=== PATIENT | female | born 1990 | race Caucasian/White ===

== ENCOUNTER 2016-10-02 20:24 | Emergency (ER) | payer OTHER ==
[2016-10-02 21:06] VITALS: BP 134/83; PULSE 87; TEMP 97.9; BMI 32.9
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
[2016-10-03] MEDS ORDERED: METHOCARBAMOL 500 MG TABLET PO ONE (00:05)
[2016-10-03] MEDS ORDERED: KETOROLAC TROMETHAMINE 60 MG/2 ML VIAL IM ONE (00:05)
[2016-10-03] MEDS ORDERED: OXYCODONE/APAP 5/325MG COMBO TABLET PO ONE (00:05)
[2016-10-03] MEDS ORDERED: METHOCARBAMOL 500 MG TABLET ONE (00:14)
[2016-10-03] MEDS ORDERED: OXYCODONE/APAP 5/325MG COMBO TABLET ONE (00:14)
[2016-10-03] MEDS ORDERED: KETOROLAC TROMETHAMINE 60 MG/2 ML VIAL ONE (00:15)
== END 2016-10-03 00:32 | disposition home or self-care (01) ==
LOC: JER 20:24 → JERFT 20:24 → JER 10-03 00:32
PROC: 3E0233Z Introduction of Anti-inflammatory into Muscle, Percutaneous Approach (ICD-10-PCS; principal; 2016-10-02)
DX: S46.812A Strain of other muscles, fascia and tendons at shoulder and upper arm level, left arm, initial encounter (principal); V73.6XXA Passenger on bus injured in collision with car, pick-up truck or van in traffic accident, initial encounter; Y93.89 Activity, other specified; Y92.414 Local residential or business street as the place of occurrence of the external cause
CPT/HCPCS: 96372; 99282-25

== ENCOUNTER 2017-04-22 08:39 | Emergency (ER) | payer OTHER ==
[2017-04-22 08:51] VITALS: TEMP 98; BMI 34.7
[2017-04-22] MEDS ORDERED: ACETAMINOPHEN 1000 MG/100 ML VIAL (NON FORMULARY) IVPB ONE (09:13)
--- NOTE | 2017-04-22 09:44 | PDOC ---
History of Present Illness - General Chief Complaint: Pain, Acute Stated Complaint: ABD PAIN Time Seen by Provider: 04/22/17 09:01 History Source: Patient Exam Limitations: No Limitations - History of Present Illness Travel History: No Initial Comments: 04/22/17 09:41 26-year-old female presents to the ED with complaints of left lower quadrant cramping which began a few days ago and has worsened in severity. Patient states has not taken anything for the pain but states pain is worsened with and sexual intercourse. Patient denies history of ovarian cyst, fibroids, dysuria but does state has irregular menses with last menstrual period being in November. Timing/Duration: reports: getting worse Quality: reports: moderate, cramping Abdominal Pain Onset Location: reports: LLQ, suprapubic (mid) Pain Radiation: reports: no radiation Activities at Onset: reports: exertion, sexual intercourse Aggravating Factors: improves with: Movement Alleviating Factors: improves with: Rest Past History - Past Medical History Allergies/Adverse Reactions: Allergies Allergy/AdvReac Type Severity Reaction Status Date / Time No Known Allergies Allergy Verified 04/22/17 08:47 Home Medications: Ambulatory Orders Ibuprofen [Motrin -] 600 mg PO TID #30 tablet 10/03/16 Methocarbamol [Robaxin -] 750 mg PO Q8H #30 tablet 10/03/16 Other medical history: DENIES. - Surgical History Cholecystectomy: Yes - Psycho/Social/Smoking Cessation Hx Suicidal Ideation: No Smoking History: Current every day smoker Have you smoked in the past 12 months: Yes Number of Cigarettes Smoked Daily: 3 Information on smoking cessation initiated: No Hx Alcohol Use: No Drug/Substance Use Hx: No Patient Lives Alone: No Lives with/in: spouse/SO Review of Systems - Review of Systems Able to Perform ROS?: Yes Constitutional: No: Symptoms Reported HEENTM: No: Symptoms Reported Respiratory: No: Symptoms reported Cardiac (ROS): No: Symptoms Reported ABD/GI: Yes: Abdominal cramping : No: Flank Pain Musculoskeletal: No: Symptoms Reported Integumentary: No: Symptoms Reported Neurological: No: Symptoms reported *Physical Exam - Vital Signs Last Vital Signs Temp Pulse Resp BP Pulse Ox 98 F 93 H 19 127/74 98 04/22/17 08:48 04/22/17 08:48 04/22/17 08:48 04/22/17 08:48 04/22/17 08:48 - Physical Exam General Appearance: Yes: Nourished, Appropriately Dressed. No: Apparent Distress Respiratory/Chest: positive: Lungs Clear, Normal Breath Sounds. negative: Respiratory Distress, Accessory Muscle Use Cardiovascular: positive: Regular Rhythm, Regular Rate. negative: Murmur Female Pelvic Exam: positive: normal external exam, adnexal tenderness (left). negative: CMT, discharge, vaginal bleeding Gastrointestinal/Abdominal: positive: Normal Bowel Sounds, Soft, Guarding, Tenderness (left lower quadrant , left mid suprapubic and mild right suprapubic) . negative: Distended, Rebound Musculoskeletal: negative: CVA Tenderness Integumentary: positive: Normal Color, Warm, Moist Neurologic: positive: Motor Strength 5/5 (ambulatory) ED Treatment Course - LABORATORY CBC & Chemistry Diagram: 04/22/17 09:45 04/22/17 09:45 Medical Decision Making - Medical Decision Making 04/22/17 09:00 Patient with complaints of worsening left suprapubic pain that she describes a sharp and cramping. Patient also states irregular menses but states she is not . Patient will be ordered for urinalysis urine , CBC, comp, lactic acid, and IV Tylenol. Based on urine results patient also will be ordered for ultrasound. 04/22/17 09:54 Laboratory Tests 04/22/17 04/22/17 09:45 09:45 Urine HCG, Qual Positive Patient ordered for beta hCG. 04/22/17 10:55 Laboratory Tests 04/22/17 04/22/17 04/22/17 09:45 09:45 09:45 WBC 13.5 H Hgb 13.9 Hct 40.4 Plt Count 257 Neutrophils % 62.8 Sodium 137 Potassium 3.9 Chloride 106 Carbon Dioxide 22 Anion Gap 9 BUN 6 L Creatinine 0.5 L Random Glucose 83 Lactic Acid Total Bilirubin 0.1 L AST 11 L ALT 20 Beta HCG, Quant 60927.7 Urine Nitrite Negative Urine Bilirubin Negative Ur Leukocyte Esterase Negative Urine WBC 5 04/22/17 09:45 WBC Hgb Hct Plt Count Neutrophils % Sodium Potassium Chloride Carbon Dioxide Anion Gap BUN Creatinine Random Glucose Lactic Acid 1.2 Total Bilirubin AST ALT Beta HCG, Quant Urine Nitrite Urine Bilirubin Ur Leukocyte Esterase Urine WBC Urine culture was sent and patient was ordered for ultrasound. Patient states feeling better after receiving the Tylenol. 04/22/17 12:24 Ultrasound shows a single viable intrauterine gestation measuring 15 weeks 4 days with a heart rate of 1 65 bpm. Both ovaries are seen with no suspicious findings. Sufficient amniotic fluid is identified. Patient will be recommended to follow up with [facility] to start vitamins. *DC/Admit/Observation/Transfer Diagnosis at time of Disposition: Abdominal pain during in second trimester - Discharge Dispostion Disposition: HOME Condition at time of disposition: Good - Referrals Referrals: Shanel Madsen MD [Staff Physician] - - Patient Instructions Printed Discharge Instructions: DI for Abdominal Pain -- Early Additional Instructions: A urine culture was sent secondary to small bacteria noted in the urine and will call you if culture comes back positive for infection. Otherwise please follow-up with referred [facility] or you can follow-up with your own [facility]. The ultrasound shows that you are 15 weeks and 4 days so please begin vitamins. May take tylenol for pain
[2017-04-22 09:57] LABS: BASOPHIL 0.2 % (0-2.0); EOSINOPHIL 0.9 % (0-4.5); MCH 30.4 pg (25.7-33.7); MCHC 34.4 g/dl (32.0-36.0); MEAN CELL VOLUME 88.5 fl (80-96); MEAN PLT VOLUME 9.2 fl (7.5-11.1); NEUTROPHILS 62.8 % (42.8-82.8); PLATELET COUNT 257 K/MM3 (134-434); WHITE BLOOD COUNT 13.5 K/mm3 (4.0-10.0)
[2017-04-22] MEDS ORDERED: ACETAMINOPHEN INJECTION 100 ML IVPB ONE (10:02)
[2017-04-22 10:03] LABS: URINE APPEARANCE CLEAR; URINE BILIRUBIN NEGATIVE (NEGATIVE); URINE BLOOD 1+ (NEGATIVE); URINE COLOR STRAW; URINE GLUCOSE (UA) NEGATIVE (NEGATIVE); URINE KETONE NEGATIVE (NEGATIVE); URINE LEUK ESTERASE NEGATIVE (NEGATIVE); URINE NITRITE NEGATIVE (NEGATIVE); URINE PROTEIN NEGATIVE (NEGATIVE); URINE UROBILINOGEN NEGATIVE mg/dL (0.2-1.0)
[2017-04-22 10:10] LABS: URINE MUCUS RARE; URINE WBC 5 /hpf (3-5)
[2017-04-22 10:19] LABS: ANION GAP 9 (8-16); CALCIUM 9.1 mg/dL (8.5-10.1); CO2 22 mmol/L (21-32); GLUCOSE,RANDOM 83 mg/dL (74-106); SGOT/AST 11 U/L (15-37); SGPT/ALT 20 U/L (12-78)
[2017-04-22 10:22] LABS: ALK PHOS 53 U/L (45-117); BILIRUBIN,TOTAL 0.1 mg/dL (0.2-1.0); CREATININE 0.5 mg/dL (0.55-1.02); TOT PROT 6.4 g/dl (6.4-8.2)
[2017-04-22 13:17] VITALS: BP 118/62; PULSE 70
== END 2017-04-22 13:17 | disposition home or self-care (01) ==
LOC: JER 08:39
PROC: 3E033NZ Introduction of Analgesics, Hypnotics, Sedatives into Peripheral Vein, Percutaneous Approach (ICD-10-PCS; principal; 2017-04-22)
DX: O26.892 Other specified pregnancy related conditions, second trimester (principal); R10.32 Left lower quadrant pain; Z3A.15 15 weeks gestation of pregnancy
CPT/HCPCS: 36415; 76815-TC; 80053; 81003; 81015; 83605; 84702; 84703; 85025; 87086; 99282-25